=== PATIENT | female | born 1950 | race American Indian/Alaskan Native ===

== ENCOUNTER 2017-02-08 20:13 | Emergency (ER) | payer MEDICARE ==
[2017-02-08 21:51] LABS: BUN/Creatinine Ratio 18.33; Calcium 9.9 mg/dL (8.4-10.2); Chloride 96.9 mmol/L (98-107)
[2017-02-08 22:04] LABS: Basophils % (Auto) 0.2 % (0.0-1.8); Eosinophils % (Auto) 0.5 % (0.0-4.3); Hematocrit 44.1 % (30.3-42.9); Hemoglobin 14.2 gm/dl (10.1-14.3); Mean Corpuscular HGB Conc 32 % (30-34); Mean Corpuscular Hemoglobin 28 pg (28-32); Mean Corpuscular Volume 87 fl (79-97); Platelet Count 235 K/mm3 (140-440); Red Cell Distribution Width 15.5 % (13.2-15.2); White Blood Count 19.8 K/mm3 (4.5-11.0)
[2017-02-08 22:24] LABS: Partial Thromboplastin Time 46.4 Sec. (24.2-36.6)
[2017-02-08 23:10] LABS: INR 5.65 (0.87-1.13)
--- NOTE | 2017-02-08 23:28 | Emergency Department Report ---
HPI - General Chief Complaint: Nosebleed Time Seen by Provider: 02/08/17 22:59 - HPI HPI: This is a 66-year-old -[place] female presents to the emergency department from home with complaint of a nosebleed. The patient says that she went to sleep after quaker and woke up with the nosebleed that did not appear to be stopping. However it did start slowing up when she reached to the emergency department. The patient is concerned as she is on both the nurse and Plavix. She has a past medical history of CVA, IVs, hypertension, mitral valve replacement, seizures. She did not take anything for symptoms prior to presentation. She feels like the blood was going into the back of her throat. She denies any chest pain, shortness of breath, fever, nausea or vomiting. The patient says that she does have a history of a recent urinary tract infection and was on some unknown antibiotics but does not feel like it is been working. ED Past Medical Hx - Past Medical History Hx Hypertension: Yes Hx CVA: Yes (x2 with left sided weakness) Hx Diabetes: Yes Additional medical history: coumadin therapy,pulmonary HTN,seizures,stent in carotid artery - Surgical History Additional Surgical History: mitral valve replacement,hysterectomy - Social History Smoking Status: Never Smoker Substance Use Type: None - Medications Home Medications: Home Medications Medication Instructions Recorded Confirmed Last Taken Type Nitrofurantoin Lipscomb/M-Cryst 100 mg PO Q12HR #14 capsule 02/09/17 Unknown Rx [Macrobid CAP] ED Review of Systems ROS: Stated complaint: NOSE BLEED Other details as noted in HPI Comment: All other systems reviewed and negative Constitutional: denies: chills, fever Eyes: denies: eye pain, eye discharge, vision change ENT: epistaxis. denies: ear pain, throat pain Respiratory: denies: cough, shortness of breath, wheezing Cardiovascular: denies: chest pain, palpitations Gastrointestinal: denies: abdominal pain, nausea, diarrhea Genitourinary: dysuria. denies: discharge Musculoskeletal: denies: back pain, joint swelling, arthralgia Skin: denies: rash, lesions Neurological: denies: headache, weakness, paresthesias Physical Exam - Physical Exam Vital Signs: Vital Signs 02/08/17 02/08/17 02/08/17 20:26 22:56 23:00 Temperature 97.9 F Pulse Rate 84 Respiratory 18 Rate Blood Pressure 152/68 158/76 Blood Pressure [Left] O2 Sat by Pulse 99 95 99 Oximetry 02/08/17 02/08/17 23:05 23:10 Temperature 99.1 F Pulse Rate 84 Respiratory 14 14 Rate Blood Pressure Blood Pressure 152/68 [Left] O2 Sat by Pulse 100 100 Oximetry Physical Exam: GENERAL: The patient is well-developed well-nourished. HEENT: Normocephalic. Atraumatic. Extraocular motions are intact. Patient has moist mucous membranes. Pupils equal reactive to light bilaterally. Oropharynx is clear. There is a small amount of venous blood seen to the medial anterior wall of the right naris/nasal passage. No current hemorrhage. NECK: Supple. Trachea is midline. CHEST/LUNGS: Clear to auscultation. There is no respiratory distress noted. HEART/CARDIOVASCULAR: Regular. There is no tachycardia. There is no gallop rub or murmur. ABDOMEN: Abdomen is soft, nontender. Patient has normal bowel sounds. There is no abdominal distention. SKIN: There is no rash. There is no edema. There is no diaphoresis. NEURO: The patient is awake, alert, and oriented. The patient is cooperative. The patient has no focal neurologic deficits. The patient has normal speech. MUSCULOSKELETAL: There is no tenderness or deformity. There is no limitation range of motion. There is no evidence of acute injury. ED Course Vital Signs 02/08/17 02/08/17 02/08/17 20:26 22:56 23:00 Temperature 97.9 F Pulse Rate 84 Respiratory 18 Rate Blood Pressure 152/68 158/76 Blood Pressure [Left] O2 Sat by Pulse 99 95 99 Oximetry 02/08/17 02/08/17 23:05 23:10 Temperature 99.1 F Pulse Rate 84 Respiratory 14 14 Rate Blood Pressure Blood Pressure 152/68 [Left] O2 Sat by Pulse 100 100 Oximetry ED Medical Decision Making - Lab Data Result diagrams: 02/08/17 21:17 02/08/17 21:17 - Medical Decision Making 66-year-old female presents to the emergency department with complaint of right sided epistaxis. Patient is on both Coumadin and Plavix. Labs were checked and the patient's INR was found to be 5.6. Physical exam there is some blood seen to the anterior medial portion of the right nasal passage but nothing that shows any active hemorrhage. Her vital signs are stable throughout ED course. The rest the patient's labs show a leukocytosis of 19,000, a urinary tract infection and some hyperglycemia. She does not appear to be in DKA or HHNK. She has non-insulin dependent diabetic and she was given 4 units of subcutaneous insulin which should bring her blood sugar closer to about 200. The leukocytosis is most likely from the urinary tract infection. She was previously on some antibiotics but they do not appear to be working for her. She was started on Macrobid for Which she will take for 1 week. The patient already has a plan with her hand stripper on Thursday, in 2 days. She will hold her Coumadin until that time which should slowly bring her down to a more reasonable level but keep her therapeutic. However if the patient's epistaxis returns again and is continuing despite holding pressure, then she will return to the emergency department for further evaluation and possibly nasal packing at that time. All this information was discussed with the patient and she understands and agrees to the plan. - Differential Diagnosis epistaxis, UTI, ulceration Critical Care Time: No Critical care attestation.: If time is entered above; I have spent that time in minutes in the direct care of this critically ill patient, excluding procedure time. ED Disposition Clinical Impression: Hyperglycemia, Epistaxis, Supratherapeutic international normalized ratio (INR) UTI (urinary tract infection) Qualifiers: Urinary tract infection type: acute cystitis Hematuria presence: without hematuria Qualified Code(s): N30.00 - Acute cystitis without hematuria Disposition: DISCHARGED TO HOME OR SELFCARE Is pt being admited?: No Condition: Stable Instructions: Urinary Tract Infection in Women (ED), Epistaxis (ED), Elevated INR (ED) Additional Instructions: Please follow-up with your hand stripper as previously scheduled on Thursday. He should skip your next 2 doses of Coumadin so that you are PT/INR level can come down to a normal therapeutic range. If your nose starts to bleed again, you should squeeze it together firmly and hold it there for 20 minutes while your head is straight and level. If the bleeding does not stop after doing this, you need to return to the emergency department for reevaluation and possible nasal packing. Return to the emergency department with any worsening of her symptoms or any acute distress. Prescriptions: Nitrofurantoin Lipscomb/M-Cryst [Macrobid CAP] 100 mg PO Q12HR #14 capsule Referrals: PRIMARY CARE, [Primary Care Provider] - 3-5 Days Time of Disposition: 00:33
[2017-02-08 23:59] VITALS: BP 145/75
[2017-02-09 00:24] LABS: Bilirubin,Urine NEG (Negative)
[2017-02-09 00:25] LABS: Blood,Urine NEG (Negative); Ketones,Urine TR mg/dL (Negative); Leukocyte Esterase,Urine LG (Negative); Mucus,Urine FEW /HPF; Nitrite,Urine NEG (Negative)
== END 2017-02-09 00:30 | disposition home or self-care (01) ==
LOC: ED 20:13
DX: R04.0 Epistaxis (principal); N30.00 Acute cystitis without hematuria; R79.1 Abnormal coagulation profile; I10 Essential (primary) hypertension; E11.65 Type 2 diabetes mellitus with hyperglycemia; I63.9 Cerebral infarction, unspecified; R56.9 Unspecified convulsions
CPT/HCPCS: 36415; 80048; 81001; 82962; 85025; 85610; 85730; 96372; J1815